=== PATIENT | male | born 1945 | race Caucasian/White ===

== ENCOUNTER 2018-08-02 09:06 | Outpatient (CLI) | payer OTHER, SELFPAY ==
[2018-08-02 10:43] LABS: Bilirubin Negative (Negative); Blood Small (Negative); Clarity Clear; Glucose 100 mg/dL (Negative); Ketones Negative (Negative); Leukocyte Esterase Negative (Negative); Nitrite Negative (Negative); Specific Gravity 1.025 (1.005-1.025); Urobilinogen 0.2 EU/dL (Up TO 0.2); pH 5.5 (5-8)
[2018-08-02 11:01] LABS: WBC 0-2 HPF (0-5)
[2018-08-02 11:02] LABS: Bacteria Few HPF (Negative); C & S Indicated? No; Casts 3-5 Coarse Granular LPF (Negative); Crystals Few Amorphous HPF (Negative); Epithelial Cells Negative HPF (Negative); Mucus Negative (Negative)
[2018-08-02 11:09] LABS: ALT 18 U/L (12-78); AST 21 U/L (15-37); Albumin 2.5 g/dL (3.4-5.0); Alkaline Phosphatase 94 U/L (46-116); Anion Gap 8.6 mmol/L (3-11); BUN 35 mg/dL (7-18); Bilirubin, Total 0.3 mg/dL (0.2-1.0); CO2 27.4 mmol/L (21.0-32.0); CREATININE 2.58 mg/dL (0.70-1.30); Calcium 8.2 mg/dL (8.5-10.1); Chloride 106 mmol/L (98-107); Estimated GFR 24.67 (mL/min/1.73m2); Glucose 114 mg/dL (70-100); Potassium 4.9 mmol/L (3.5-5.1); Sodium 142 mmol/L (136-145); Total Protein 5.3 g/dL (6.4-8.2)
[2018-08-02 12:04] LABS: COMMENT (LAB VIEW ONLY) 85.35 mg/dL
== END 2018-08-02 09:26 ==
PROVIDERS: PCP Internal Medicine; Visit Provider Orthopaedic Surgery
DX: I10 Essential (primary) hypertension (principal); N18.9 Chronic kidney disease, unspecified
CPT/HCPCS: 36415; 80053; 81003; 81015; 82043; 82570